=== PATIENT | female | born 2000 | race Caucasian/White ===

== ENCOUNTER 2020-07-11 16:08 | Emergency (ER) | payer OTHER, SELFPAY ==
[2020-07-11 16:15] VITALS: BP 127/59; PULSE 82; RESP 16; TEMP 36.8; O2SAT 100
--- NOTE | 2020-07-11 16:35 | ED.URI ---
HPI - URI/Sore Throat General Chief Complaint: Upper Respiratory Infection Stated Complaint: sore throat Time Seen by Provider: 07/11/20 16:28 Source: patient and RN notes reviewed Mode of arrival: ambulatory Limitations: no limitations History of Present Illness HPI Narrative: Patient presents today with a 3-day history of sore throat that is worse today. Denies fever, cough, congestion or rhinorrhea, or any other additional symptoms. No known sick exposures, to include COVID-19. Currently rates her pain 4/10 and has tried no [id number] treatment prior to arrival. MD elicited complaint: sore throat Related Data Home Medications Medication Instructions Recorded Confirmed norgestimate-ethinyl estradiol 1 tablet PO DAILY 07/11/20 07/11/20 [Estarylla] Allergies Allergy/AdvReac Type Severity Reaction Status Date / Time Sulfa (Sulfonamide Allergy Severe Hives Verified 07/11/20 16:20 Antibiotics) Review of Systems Review of Systems: Narrative: CONSTITUTIONAL: Denies body aches, fever, chills, or sweats. EYES: Denies visual changes, redness, or discharge. ENT: Denies rhinorrhea, congestion, or otalgia.+ Sore throat CARDIOVASCULAR: Denies chest pain, palpitations, or edema. RESPIRATORY: Denies cough or dyspnea. GASTROINTESTINAL: Denies abdominal pain, nausea, vomiting, or diarrhea. GENITOURINARY: Denies dysuria or hematuria. SKIN: Denies rash, itching, or wounds. MUSCULOSKELETAL: Denies back pain, joint pain, or myalgia. NEUROLOGIC: Denies headache, numbness, tingling, or weakness. PSYCH: Denies depression or anxiety. PMFSH Social History Social History Gender identity (if verbalized by the patient): Female Comments At time of signature, I have reviewed and agree with nursing past medical, surgical, social and family history unless otherwise noted. Please see nursing chart for further information. There is no relevant family history pertinent to the presenting complaint Exam Narrative: Exam Narrative: GENERAL: Well-appearing, well-nourished, and in no acute distress. HEAD: Normocephalic, atraumatic. EYES: EOMI. No redness or drainage. Conjunctivae normal. ENT: Mucous membranes pink and moist. Nares clear. No rhinorrhea. TMs normal bilaterally. Throat erythematous without edema or exudate. Uvula midline. NECK: Normal AROM. Supple. No lymphadenopathy. CHEST: No respiratory distress. Clear to auscultation. HEART: Regular rate and rhythm. No murmur appreciated. Normal peripheral pulses. ABDOMEN: Soft, nontender, nondistended, normal active bowel sounds. MUSCULOSKELETAL: No bony tenderness. EXTREMITIES: Normal range of motion. No edema. SKIN: Warm, dry, no rash. Capillary refill normal. Normal skin turgor. NEURO: No focal deficits. Alert and oriented x3. Gait steady. PSYCH: Normal affect. No signs of depression or anxiety. Course Course Emergency Course: Due to recent exposure and symptoms, patient may have a possible COVID-19 infection. Signs and symptoms discussed with patient. Patient educated to self-isolate in a room in his/her home away from others they live with. Use mask if available. Patient was advised not to leave house for any reason ? Self-treatment discussed including Tylenol for fever, pain, or myalgia, and cough cold medications for symptoms. Patient to check temperature daily and monitor for symptoms of respiratory distress. Patient should check in daily with primary care office/system via phone/virtual platform ? Nature of the disease to cause severe respiratory distress discussed with the patient. If emergent care is needed, instructed to notify EMS or primary care office/system that he/she may have COVID-19 to allow for proper preparation of PPE and isolation measures Vital Signs Vital signs: Vital Signs Temperature 98.3 F 07/11/20 16:15 Pulse Rate 82 07/11/20 16:15 Respiratory Rate 16 07/11/20
== END 2020-07-11 16:45 | disposition home or self-care (01) ==
PROVIDERS: Emergency Provider Nurse Practitioner
DX: J06.9 Acute upper respiratory infection, unspecified (principal); J02.9 Acute pharyngitis, unspecified; Z20.828 Contact with and (suspected) exposure to other viral communicable diseases
CPT/HCPCS: 87081; 87880; 99213; G0463

== ENCOUNTER 2020-08-07 16:11 | Emergency (ER) | payer OTHER, SELFPAY ==
[2020-08-07 16:13] VITALS: BP 140/85; PULSE 98; RESP 16; TEMP 36.3; O2SAT 98
[2020-08-07 16:44] LABS: Add Urine Microscopic? YES; Appearance Urine Clear (Clear); Bilirubin Urine Negative (Negative); Blood Urine 1+ (Negative); Color Urine Straw (Yellow); Glucose Urine UA Negative (Negative); Ketones Urine Negative (Negative); Leukocyte Esterase Ur Negative LEU/UL (Negative); Mucus Urine Rare /lpf; Nitrate Urine Negative (Negative); Protein Urine Negative (Negative); RBC Urine 0-2 /hpf (0-2); Specific Grav Ur 1.014 (1.001-1.035); Squamous Epithelial Cell Urine Many /hpf (Few); Urobilinogen Urine Negative mg/dL (<2.0); WBC Urine 0-3 /hpf
--- NOTE | 2020-08-07 18:03 | ED.FEMALEGU ---
HPI - Female Genitourinary General Chief complaint: Urogenital-Female Stated complaint: UTI Time Seen by Provider: 08/07/20 16:21 Source: patient Mode of arrival: ambulatory Limitations: no limitations History of Present Illness HPI Narrative: 19 years old white female presents with right lower back pain, she believes that she had similar symptoms when she had urinary tract infection. Patient also had a new sexual relationship started 2 months ago and worried about the possibility of STD. Patient denies any fever, chills, nausea, vomiting, urinary frequency or burning sensation. Patient reports possible slight vaginal discharge which could be normal Related Data Home Medications Medication Instructions Recorded Confirmed No Home Medications 08/07/20 08/07/20 Allergies Allergy/AdvReac Type Severity Reaction Status Date / Time Sulfa (Sulfonamide Allergy Severe Hives Verified 08/07/20 16:15 Antibiotics) Review of Systems Review of Systems: Narrative: CONSTITUTIONAL: Denies fever, chills, or sweats. EYES: Denies visual changes, redness, or discharge. ENT: Denies rhinorrhea, congestion, sore throat, or otalgia. CARDIOVASCULAR: Denies chest pain, palpitations, or edema. RESPIRATORY: Denies cough or dyspnea. GASTROINTESTINAL: Denies abdominal pain, nausea, vomiting, or diarrhea. GENITOURINARY: Denies dysuria or hematuria. SKIN: Denies rash or itching. MUSCULOSKELETAL: Denies back pain, joint pain, or myalgia. NEUROLOGIC: Denies headache, numbness, or weakness. PSYCHIATRIC: Denies anxiety or depression. PMFSH Social History Social History Gender identity (if verbalized by the patient): Female Exam Narrative: Exam Narrative: General appearance: Well-developed, well-nourished Skin: Normal color Head: Normocephalic, nontraumatic Eyes: Clear conjunctiva ENT: Oropharynx normal, ears normal, nose normal Neck: Supple, nontender Chest and respiratory: Airway patent, no respiratory distress, no accessory muscle use Heart: Regular rate/rhythm Abdomen: Soft, nontender, no organomegaly, quiet bowel sounds Vascular: Normal peripheral pulses, normal capillary refill. Musculoskeletal: Normal range of motion, nontender back Neurologic: Alert and oriented ?3, [employer] is normal as tested, no gross motor deficit : General: Yes no CVA tenderness External Female Exam: normal external appearance Speculum Exam - Vagina: normal appearance of the vagina and normal vaginal discharge Speculum Exam - Cervix: normal appearance of the cervix and Cervical os closed Course Course Emergency Course: Stable Vital Signs Vital signs: Vital Signs Temperature 36.3 C L 08/07/20 16:13 Pulse Rate 98 08/07/20 16:13 Respiratory Rate 16 08/07/20 16:13 Blood Pressure 140/85 08/07/20 16:13 Pulse Oximetry 98 08/07/20 16:13 Temperature 36.3 C L 08/07/20 16:13 Pulse Rate 98 08/07/20 16:13 Respiratory Rate 16 08/07/20 16:13 Blood Pressure 140/85 08/07/20 16:13 Pulse Oximetry 98 08/07/20 16:13 MDM - Female Genitourinary MDM Narrative Medical decision making narrative: Patient presents with possible urinary tract infection or STD or both. UA, pelvic exam ordered. Further plan to follow Differential Diagnosis Differential diagnosis: Likely urinary tract infection, cervicitis and vaginitis Lab Data Labs: Lab Results 08/07/20 Range/Units 16:34 Urine Color Straw (Yellow) Urine Appearance Clear (Clear) Urine pH 7.0 (5.0-9.0) Ur Specific [place] 1.014 (1.001-1.035) Urine Protein Negative (Negative) mg/dL Urine Glucose (UA) Negative (Negative) mg/dL Urine Ket
== END 2020-08-07 19:00 | disposition home or self-care (01) ==
PROVIDERS: Emergency Provider Emergency Medicine
DX: R30.0 Dysuria (principal)
CPT/HCPCS: 81001; 81025; 87070; 87491; 87591; 87808; 99284

== ENCOUNTER 2020-12-21 15:19 | Emergency (ER) | payer OTHER, SELFPAY ==
--- NOTE | 2020-12-21 15:27 | ED.SKABFB ---
HPI - Skin/Abscess/Foreign Bdy General Chief complaint: Skin/Abscess/Foreign Body Stated complaint: rash Time Seen by Provider: 12/21/20 15:26 Source: patient and RN notes reviewed Mode of arrival: ambulatory Limitations: no limitations History of Present Illness HPI narrative: 20-year-old female presents with concern for rash to her arms, hands. Reports she used a lotion at a nail salon that may have had a gradient she was allergic to. Reports the rash has been present for approximately 1 week and has not improved with Benadryl. She denies any swollen lips, swollen tongue, difficulty breathing, diarrhea, nausea, vomiting, fever. MD complaint: rash Related Data Home Medications Medication Instructions Recorded Confirmed No Home Medications 08/07/20 12/21/20 Allergies Allergy/AdvReac Type Severity Reaction Status Date / Time Sulfa (Sulfonamide Allergy Severe Hives Verified 08/07/20 16:15 Antibiotics) cocoa butter Allergy Rash Verified 12/21/20 15:33 Review of Systems Review of Systems: Narrative: CONSTITUTIONAL: Denies malaise, chills, sweats, or fever. ENT: Denies sore lips, swollen tongue, difficulty swallowing CARDIOVASCULAR: Denies chest pain, palpitations, or edema. RESPIRATORY: Denies cough or dyspnea. GASTROINTESTINAL: Denies abdominal pain, nausea, vomiting, diarrhea SKIN: Reports rash on hands, arms bilaterally MUSCULOSKELETAL: Denies myalgia. NEUROLOGIC: Denies headache. All systems reviewed & are unremarkable except as noted in HPI and below PMFSH Social History Social History Gender identity (if verbalized by the patient): Female Comments At time of signature, agree with nursing past medical, surgical, social and family history. There is no relevant family history pertinent to the presenting complaint Exam Narrative: Exam Narrative: GENERAL: Well-appearing, well-nourished, and in no acute distress. HEAD: Normocephalic, atraumatic. EYES: PERRLA, conjunctivae clear, and EOMI. ENT: Mucous membranes moist. Oropharynx without edema, erythema or lesions. NECK: Supple. No lymphadenopathy CHEST: Clear to auscultation. No respiratory distress. HEART: Regular rate and rhythm. SKIN: Warm, dry. Natalia papular rash noted to bilateral hands, elbows, forearms NEURO: Alert and oriented x3. PSYCH: Normal mood and affect Course Course Emergency Course: Patient is aware of diagnosis, understands and agrees to treatment plan. Anticipatory guidance given. Patient agrees to follow-up as directed and is aware of reasons to seek care at the emergency department. Portions of this record may have been created with voice recognition software Vital Signs Vital signs: Vital Signs Temperature 97.8 F 12/21/20 15:29 Pulse Rate 77 12/21/20 15:29 Respiratory Rate 16 12/21/20 15:29 Blood Pressure 124/66 12/21/20 15:29 Pulse Oximetry 100 12/21/20 15:29 Temperature 97.8 F 12/21/20 15:29 Pulse Rate 77 12/21/20 15:29 Respiratory Rate 16 12/21/20 15:29 Blood Pressure 124/66 12/21/20 15:29 Pulse Oximetry 100 12/21/20 15:29 Reviewed. MDM - Skin/Abscess/Foreign Bdy MDM Narrative Medical decision making narrative: Does not appear at this time to be erythema multiforme, bullous, SJS, TEN; no evidence at this time to suggest RMSF, endocarditis or Lyme disease; patient looks well, nontoxic and is tolerating oral intake; no neurologic signs or symptoms; no headache, photophobia or neck pain; afebrile; appropriate for initial outpatient treatment; discussed the importance of follow-up, patient agrees; question, viral exanthema, contact dermatitis, allergic dermatitis, eczema, urticaria, scabies. No soft palate or uvula edema, no tongue, lip edema or other mucosal involvement, no respiratory compromise, no stridor, no wheezing, no wheezing, no history of syncope, no hypotension, no nausea, vomiting, or diarrhea. Instructed patient to go to [facility]
[2020-12-21 15:29] VITALS: BP 124/66; PULSE 77; RESP 16; TEMP 36.6; O2SAT 100
== END 2020-12-21 15:39 | disposition home or self-care (01) ==
PROVIDERS: Emergency Provider Nurse Practitioner
DX: L23.9 Allergic contact dermatitis, unspecified cause (principal); Z87.891 Personal history of nicotine dependence
CPT/HCPCS: 99213; G0463

== ENCOUNTER 2021-06-03 15:02 | Emergency (ER) | payer OTHER, SELFPAY ==
--- NOTE | 2021-06-03 15:08 | ED.DENTAL ---
HPI - Dental/Oral General Chief complaint: Dental/Oral Stated complaint: tooth pain Time Seen by Provider: 06/03/21 15:51 Source: patient and RN notes reviewed Mode of arrival: ambulatory Limitations: no limitations History of Present Illness HPI Narrative: 20-year-old female presents concern for right upper dental pain. Reports she has a broken tooth that has been broken for quite some time, however it only recently started hurting her. Reports she has a dentist appointment in the beginning of June, however has had significant pain. She denies any facial swelling, difficulty swallowing, fever, body aches. Denies headaches. Reports the pain is radiating toward her ear. Denies intervention. MD Complaint: tooth pain Related Data Allergies Allergy/AdvReac Type Severity Reaction Status Date / Time Sulfa (Sulfonamide Allergy Severe Hives Verified 06/03/21 15:58 Antibiotics) cocoa butter Allergy Rash Verified 06/03/21 15:58 Review of Systems Review of Systems: CONSTITUTIONAL: Denies malaise, chills, sweats, or fever. EYES: Denies visual changes ENT: Denies rhinorrhea, congestion, sinus pain, otalgia or sore throat. Reports right upper dental pain, broken tooth CARDIOVASCULAR: Denies chest pain, palpitations, or edema. RESPIRATORY: Denies cough or dyspnea. GASTROINTESTINAL: Denies abdominal pain, nausea, vomiting SKIN: Denies redness or bruising MUSCULOSKELETAL: Denies myalgia. NEUROLOGIC: Denies headache. All systems reviewed & are unremarkable except as noted in HPI and below PMFSH Social History Social History Gender identity (if verbalized by the patient): Female Comments At time of signature, agree with nursing past medical, surgical, social and family history. There is no relevant family history pertinent to the presenting complaint Exam Narrative: GENERAL: Well-appearing, well-nourished, and in no acute distress. HEAD: Normocephalic, atraumatic. EYES: PERRLA, sclera clear, and EOMI. No nystagmus. ENT: Nares clear. Mucous membranes moist. TM pearly conrad with sharp light reflex bilaterally; no tragal tenderness. Oropharynx without edema, erythema or lesions. Tonsils not enlarged and without exudate. Broken teeth, caries NECK: Supple. No lymphadenopathy. CHEST: No respiratory distress. Speaks in full sentences. HEART: Regular rate and rhythm. SKIN: Warm, dry, no visible rash. NEURO: Alert and oriented x3. PSYCH: Normal mood and affect Course Course Emergency Course: Patient is aware of diagnosis, understands and agrees to treatment plan. Anticipatory guidance given. Patient agrees to follow-up as directed and is aware of reasons to seek care at the emergency department. Portions of this record may have been created with voice recognition software Vital Signs Vital signs: Reviewed. MDM - Dental/Oral MDM Narrative Medical decision making narrative: Patients pain and complaint coupled with physical findings are consistant with dentalgia. There are no focal signs of space occupying lesions that are compromising to the airway; no dysphagia, odynophagia, dysphonia, or dyspnea. No uvular deviation or soft palate edema. Patient is non-toxic appearing. The floor of the mouth is soft with no signs of Damon's Angina; no induration below mandible, no neck pain. Patient is without trismus or drooling and able to swallow secretions. Patient is felt appropriate for discharge home with dental follow up. Critical Care Time Critical Care Time Critical Care Time: No Discharge Plan Discharge Clinical Impression: Toothache Patient Disposition: Home, Self-Care Condition: Stable Instructions: Antibiotic Form, Toothache (ED) Additional Instructions: Take antibiotic as directed Avoid temperature extremes May apply heat or ice to the face Gentle brushing and flossing Alternate Tylenol and ibuprofen as needed for pain Follow-up with the dentist as julia
[2021-06-03 15:15] VITALS: BP 114/75; PULSE 74; RESP 16; TEMP 36.7; O2SAT 100
== END 2021-06-03 16:05 | disposition home or self-care (01) ==
PROVIDERS: Emergency Provider Nurse Practitioner
DX: K08.89 Other specified disorders of teeth and supporting structures (principal); Z87.891 Personal history of nicotine dependence
CPT/HCPCS: 99213; G0463

== ENCOUNTER 2022-06-20 15:29 | Emergency (ER) | payer OTHER, SELFPAY ==
[2022-06-20 15:38] VITALS: BP 125/83; PULSE 73; RESP 16; TEMP 36.6; O2SAT 99
--- NOTE | 2022-06-20 16:12 | ED.SKABFB ---
HPI - Skin/Abscess/Foreign Bdy General Chief complaint: Skin/Abscess/Foreign Body Stated complaint: Rash Time Seen by Provider: 06/20/22 16:12 Source: patient Mode of arrival: ambulatory Limitations: no limitations History of Present Illness HPI narrative: 21 y/o female presented for c/o red circular rash lesions to upper back right leg and right chest appearing for 2 weeks. Denies itching. Denies known contacts with similar symptoms. Has not applied anything to sites. Related Data Allergies Allergy/AdvReac Type Severity Reaction Status Date / Time Sulfa (Sulfonamide Allergy Severe Hives Verified 06/20/22 15:47 Antibiotics) cocoa butter Allergy Intermediate Rash Verified 06/20/22 15:47 Review of Systems Review of Systems: CONSTITUTIONAL: Denies body aches, fever, chills, or sweats. EYES: Denies visual changes, redness, or discharge. CARDIOVASCULAR: Denies chest pain, palpitations, or edema. RESPIRATORY: Denies cough or dyspnea. GASTROINTESTINAL: Denies abdominal pain, nausea, vomiting, or diarrhea. SKIN: see hpi MUSCULOSKELETAL: Denies back pain, joint pain, or myalgia. NEUROLOGIC: Denies headache, numbness, tingling, or weakness. [facility] Past Medical History Medical History Surveillance for Depo-Provera contraception Social History Social History Gender identity (if verbalized by the patient): Female Comments At time of signature, I have reviewed and agree with nursing past medical, surgical, social and family history unless otherwise noted. Please see nursing chart for further information. There is no relevant family history pertinent to the presenting complaint Exam Narrative: GENERAL: Well-appearing ENT: Mucous membranes moist. Oropharynx without edema, erythema or lesions. NECK: Supple. No lymphadenopathy CHEST: Clear to auscultation. HEART: Regular rate and rhythm. SKIN: Warm, dry. Scattered erythematous circular scaly lesions to upper back from 0.5cm-1cm diameter, right lateral thigh approx 3cm diameter , right upper chest approx 1.5cm diameter, c/w tinea corporis. No induration or fluctuance to sites. NEURO: Alert and oriented x3. Course Course Emergency Course: Patient is aware of diagnosis, understands and agrees to treatment plan. Anticipatory guidance given. Patient agrees to follow-up as directed and is aware of reasons to seek care at the emergency department. Portions of this record may have been created with voice recognition software Level of Care: Express Care Visit Vital Signs Vital signs: Vital Signs Temperature 97.8 F 06/20/22 15:38 Pulse Rate 73 06/20/22 15:38 Respiratory Rate 16 06/20/22 15:38 Blood Pressure 125/83 06/20/22 15:38 Pulse Oximetry 99 06/20/22 15:38 Oxygen Delivery Room Air 06/20/22 15:38 Temperature 97.8 F 06/20/22 15:38 Pulse Rate 73 06/20/22 15:38 Respiratory Rate 16 06/20/22 15:38 Blood Pressure 125/83 06/20/22 15:38 Pulse Oximetry 99 06/20/22 15:38 Oxygen Delivery Room Air 06/20/22 15:38 Reviewed MDM - Skin/Abscess/Foreign Bdy MDM Narrative Medical decision making narrative: Advised supportive measures and signs/symptoms to go to the ER. Pt is appropriate for outpt treatment and f/u. Instructed patient to go to nearest ER immediately for any worsening symptoms including but not limited to: fever, spreading rash, pain, sore throat, headache, dizziness, chest pain, trouble breathing, or any symptoms concerning to the patient. Differential Diagnosis Differential diagnosis: Likely abscess of skin or subcutaneous tissue, urticaria, herpes zoster, cellulitis and contact dermatitis Discharge Plan Discharge Clinical Impression: Dermatophytosis Patient Disposition: Home, Self-Care Condition: Stable Instructions: Tinea Corporis (ED) Additional Instructions: Keep skin clean and dry T
== END 2022-06-20 16:25 | disposition home or self-care (01) ==
PROVIDERS: Emergency Provider Nurse Practitioner Family
DX: B35.4 Tinea corporis (principal); Z87.891 Personal history of nicotine dependence
CPT/HCPCS: 99213; G0463

== ENCOUNTER 2022-07-02 10:47 | Emergency (ER) | payer OTHER, SELFPAY ==
[2022-07-02 10:55] VITALS: BP 128/79; PULSE 100; RESP 14; TEMP 37.2; O2SAT 100
--- NOTE | 2022-07-02 11:06 | ED.GENADULT ---
HPI - General Adult General Chief complaint: Upper Respiratory Infection Stated complaint: Sore Throat, Rash on Body Time Seen by Provider: 07/02/22 11:06 Source: patient, RN notes reviewed and old records reviewed Mode of arrival: ambulatory Limitations: no limitations History of Present Illness HPI narrative: 21-year-old female presents to the [facility] with sore throat and rash on body Sore throat and fever started last night. Rash has been going on was evaluated on the 20 of June. Related Data Allergies Allergy/AdvReac Type Severity Reaction Status Date / Time Sulfa (Sulfonamide Allergy Severe Hives Verified 07/02/22 11:08 Antibiotics) cocoa butter Allergy Intermediate Rash Verified 07/02/22 11:08 Review of Systems Review of Systems: All systems reviewed & are unremarkable except as noted in HPI and below Constitutional: Constitutional: Reports no additional constitutional complaints, Denies chills and Denies fever(s) Eyes: Eyes: Reports no additional eye complaints ENT: Reports as per HPI Cardiovascular: Cardiovascular: Reports no additional cardiovascular complaints Respiratory: Respiratory: Reports no additional respiratory complaints Gastrointestinal: Gastrointestinal: Reports no additional gastrointestinal complaints Musculoskeletal: Musculoskeletal: Reports no additional musculoskeletal complaints Integumentary/Breasts: Skin/Breast: Reports as per HPI and Reports rash Neurologic: Reports system reviewed and no additional complaints, except as documented Psychiatric: Psychiatric: Reports no additional psychiatric complaints Allergic/Immunologic: Allergic/Immunologic: Reports no additional allergic/immunologic complaints [facility] Past Medical History Medical History Surveillance for Depo-Provera contraception Social History Social History Gender identity (if verbalized by the patient): Female Comments At the time of my signature, I reviewed and agree with the nursing past medical, surgical, social, and family history. There is no relevant family history pertinent to the patient complaint. Exam Const: General: healthy appearing, comfortable, no acute distress, well developed, alert and well nourished Nutritional Appearance: well nourished Orientation/consciousness: patient oriented x3 Limitations: no limitations HENMT: Head: normal to inspection Ears: external ears normal, TM's normal bilaterally and EAC's normal Face/Nose/Sinus: Normal external nose present and Normal nares present Mouth: Yes Normal oral and palatal mucosa present, Yes lip normal and Yes moist mucous membranes Throat: posterior oropharynx normal, uvula midline and abnormal tonsil bilateral erythema, exudates and hypertrophy 3+ Eyes: General: appearance normal, both eyes and all related structures Pupils: Equal, round and reactive pupils present Neck: Neck: normal visual inspection, full ROM, no lymphadenopathy and no meningeal signs Chest: Chest palpation & inspection: normal inspection of the chest Resp: Effort & Inspection: normal respiratory effort and no use of accessory muscles Auscultation: clear to auscultation bilaterally, no crackles, no rales, no rhonchi and no wheezes Cardio: Rate: regular rate Rhythm: regular rhythm GI: GI Palp: Yes Soft to palpation and No Tenderness to palpation present (GI) Back/Spine/Pelvis: Cervical Spine: cervical ROM normal and No Cervical spine tenderness Thoracic/Lumbar Spine: thoracic and lumbar spine normal to inspection and thoraco-lumbar ROM normal Skin: General skin exam: normal color Wounds: no wounds Other: Multiple circular lesions, raised edges of the chest, back, hips. Flaky, dry in appearance without signs of cellulitis. No fluctuance. Neuro: General: patient oriented x3, moves all extremities, no meningeal signs and no focal motor deficits Cranial ne
== END 2022-07-02 11:21 | disposition home or self-care (01) ==
PROVIDERS: Emergency Provider Nurse Practitioner
DX: J03.90 Acute tonsillitis, unspecified (principal); B35.4 Tinea corporis; Z87.891 Personal history of nicotine dependence
CPT/HCPCS: 87081; 87804; 87880; 99213; G0463

== ENCOUNTER 2022-09-11 11:17 | Emergency (ER) | payer OTHER, SELFPAY ==
--- NOTE | 2022-09-11 11:18 | ED.URI ---
HPI - URI/Sore Throat General Chief Complaint: Upper Respiratory Infection Stated Complaint: sore throat Time Seen by Provider: 09/11/22 11:18 Source: patient Mode of arrival: ambulatory Limitations: no limitations History of Present Illness HPI Narrative: Ms. Webb is a 22-year-old female patient presenting to the clinic today with complaints of a sore throat and runny nose. She reports runny nose has been going on for approximately 1 week but started having sore throat today. She reports that she gets for strep throat frequently. She denies any fever or chills. She denies any known exposure to anybody with COVID, flu, or strep. MD elicited complaint: sore throat and nasal congestion Related Data Allergies Allergy/AdvReac Type Severity Reaction Status Date / Time Sulfa (Sulfonamide Allergy Severe Hives Verified 09/11/22 11:24 Antibiotics) cocoa butter Allergy Intermediate Rash Verified 09/11/22 11:24 Review of Systems Review of Systems: Pertinent positives per HPI. Patient denies any fever, chills, rash, headache, visual changes, dizziness, cough, shortness of breath, chest pain, palpitations, nausea, vomiting, diarrhea, constipation, abdominal pain, or any urinary issues. [facility] Past Medical History Medical History Surveillance for Depo-Provera contraception Social History Social History Gender identity (if verbalized by the patient): Female Comments At the time of my signature, I reviewed and agree with the nursing past medical, surgical, social, and family history. There is no relevant family history pertinent to the patient complaint. Exam Narrative: General: Well-developed, well nourished, in no apparent distress Head: Normocephalic, atraumatic Eyes: Pupils equally round and reactive to light bilaterally, EOM intact, sclera and conjunctive clear, no discharge, lids normal Ears: TMs intact and clear, ear canals clear, no drainage, grossly hearing normal. Nose: Nares patent, no discharge, no inflammation, no sinus tenderness. Mouth: Oral pharynx without lesions or masses, good dentition, MMM. Oropharynx red with bilateral tonsillar swelling Neck: Supple, trachea midline, no enlargement of anterior or posterior cervical nodes, no thyroid masses or goiter palpable. Cardio: Regular rate and rhythm, s1 and s2 normal, no murmur appreciated. Resp: Clear to auscultation bilaterally, no rhonchi, rales, wheezing or rubs Course Course Emergency Course: Portions of this record may have been created with voice recognition software. Level of Care: Express Care Visit Vital Signs Vital signs: Vital signs reviewed MDM - URI/Sore Throat MDM Narrative Medical decision making narrative: At the time of visit patient is resting comfortably on the exam table. Strep screen was positive in the clinic today. I suspect patient has URI/strep pharyngitis. Prescription for prednisone and amoxicillin was sent to the pharmacy and supportive measures were discussed with the patient she voiced understanding of discharge instructions and agrees to treatment plan. Differential Diagnosis Differential diagnosis: Likely upper respiratory infection, otitis media, sinusitis, viral infection, bronchitis, influenza, pharyngitis and other (COVID) Discharge Plan Discharge Clinical Impression: Acute streptococcal pharyngitis Upper respiratory infection Qualifiers: URI type: unspecified URI Qualified Code(s): J06.9 - Acute upper respiratory infection, unspecified Patient Disposition: Home, Self-Care Condition: Stable Instructions: Antibiotic Form, Strep Throat (ED), Upper Respiratory Infection (ED) Additional Instructions: Take prescription medications only as prescribed-amoxicillin Change her toothbrush in 24 hours after initiation antibiotic Increase fluids and stay well hydrated Tylenol
[2022-09-11 11:25] VITALS: BP 120/79; PULSE 78; RESP 16; TEMP 36.6; O2SAT 99
== END 2022-09-11 11:46 | disposition home or self-care (01) ==
PROVIDERS: Emergency Provider Nurse Practitioner Family
DX: J02.0 Streptococcal pharyngitis (principal); Z87.891 Personal history of nicotine dependence
CPT/HCPCS: 87880; 99213; G0463

== ENCOUNTER 2022-10-03 11:21 | Emergency (ER) | payer OTHER, SELFPAY ==
[2022-10-03 11:34] VITALS: BP 126/66; PULSE 79; RESP 16; TEMP 36.8; O2SAT 100
--- NOTE | 2022-10-03 11:51 | ED.URI ---
HPI - URI/Sore Throat General Chief Complaint: Upper Respiratory Infection Stated Complaint: uri Time Seen by Provider: 10/03/22 11:51 Source: patient and RN notes reviewed Mode of arrival: ambulatory Limitations: no limitations History of Present Illness HPI Narrative: 22-year-old female presented for complaint of cough, nasal congestion, sore throat, and fever for about 3 days. She endorses temperature up to 101, with associated body aches. Also has been coughing and gagging on mucus. She denies known sick contacts but did attend radiograph. She denies shortness of breath, wheezing, nausea, vomiting. Not taking anything for symptoms. Patient vapes. MD elicited complaint: cough Related Data Allergies Allergy/AdvReac Type Severity Reaction Status Date / Time Sulfa (Sulfonamide Allergy Severe Hives Verified 10/03/22 11:36 Antibiotics) cocoa butter Allergy Intermediate Rash Verified 10/03/22 11:36 Review of Systems Review of Systems: ROS per HPI [facility] Past Medical History Medical History Surveillance for Depo-Provera contraception Social History Social History Gender identity (if verbalized by the patient): Female Exam Narrative: GENERAL: Ill-appearing, nontoxic EYES: PERRLA, conjunctivae clear ENT: Mucous membranes moist. nasal congestion. TM pearly conard with dull light reflex bilaterally; no tragal tenderness. Oropharynx erythematous Tonsils enlarged 2+ without lesions or exudate, no drooling, no hoarseness, no trismus, uvula midline. No tripod positioning, muffled voice, soft palate or pharyngeal wall bulging NECK: Supple. No lymphadenopathy CHEST: Clear to auscultation, breath sounds equal. frequent moist cough. No wheezing, rhonchi, rales, or stridor. No respiratory distress, speaks in full sentences. HEART: Regular rate and rhythm. No murmur heard. SKIN: Warm, dry, no rash. NEURO: Alert and oriented x3. PSYCH: Normal mood and affect Course Course Emergency Course: Patient is aware of diagnosis, understands and agrees to treatment plan. Anticipatory guidance given. Patient agrees to follow-up as directed and is aware of reasons to seek care at the emergency department. Portions of this record may have been created with voice recognition software Level of Care: Express Care Visit Vital Signs Vital signs: Vital Signs Temperature 98.3 F 10/03/22 11:34 Pulse Rate 79 10/03/22 11:34 Respiratory Rate 16 10/03/22 11:34 Blood Pressure 126/66 10/03/22 11:34 Pulse Oximetry 100 10/03/22 11:34 Oxygen Delivery Room Air 10/03/22 11:34 Temperature 98.3 F 10/03/22 11:34 Pulse Rate 79 10/03/22 11:34 Respiratory Rate 16 10/03/22 11:34 Blood Pressure 126/66 10/03/22 11:34 Pulse Oximetry 100 10/03/22 11:34 Oxygen Delivery Room Air 10/03/22 11:34 reviewed MDM - URI/Sore Throat MDM Narrative Medical decision making narrative: Results of test reviewed with patient. Advised supportive measures and signs/symptoms to go to the ER. Pt is appropriate for outpt treatment and f/u. Differential Diagnosis Differential diagnosis: Likely upper respiratory infection, sinusitis, viral infection, bronchitis and influenza Lab Data Labs: Lab Results 10/03/22 Range/Units 11:47 POC SARS CoV-2 Ag Negative (Negative) Influenza A Screen Negative Reference Range: Negative Influenza B Screen Negative Reference Range: Negative Strep Screen Presumptive Negative *(Reference Range: Negative)* Discharge Plan Discharge Clinical Impression: Upper respiratory infection Patient Disposition: Home, Self-Care Condition: Stable Instructions: Upper Respiratory Infection (E
== END 2022-10-03 12:26 | disposition home or self-care (01) ==
PROVIDERS: Emergency Provider Nurse Practitioner Family
DX: J06.9 Acute upper respiratory infection, unspecified (principal); Z20.822 Contact with and (suspected) exposure to COVID-19
CPT/HCPCS: 87081; 87426; 87804; 87880; 99213; C9803; G0463

== ENCOUNTER 2024-11-02 11:55 | Emergency (ER) | payer SELFPAY ==
[2024-11-02 12:08] VITALS: BP 127/77; PULSE 67; RESP 20; TEMP 36.7; O2SAT 100
[2024-11-02 12:41] LABS: EDSTREPNEGPOS1 Negative (Negative)
[2024-11-02 12:46] VITALS: PULSE 67; RESP 20; O2SAT 100
--- NOTE | 2024-11-02 12:47 | ED.URI ---
HPI - URI/Sore Throat General Chief Complaint: Upper Respiratory Infection Stated Complaint: irritation in throat Time Seen by Provider: 11/02/24 12:40 Source: patient and RN notes reviewed Mode of arrival: ambulatory Limitations: no limitations History of Present Illness HPI Narrative: Patient presents today complaining of pain and irritation to the throat x2 weeks. Believes this may be due to some black mold she found in her house. Denies any other symptoms except occasional cough that she is attributing to her sore throat. Denies fever, congestion, rhinorrhea, shortness of breath, difficulty swallowing. She has occasionally taking Tylenol with mild relief. Related Data Allergies Allergy/AdvReac Type Severity Reaction Status Date / Time Sulfa (Sulfonamide Allergy Severe Hives Verified 11/02/24 12:03 Antibiotics) cocoa butter Allergy Intermediate Rash Verified 11/02/24 12:03 Review of Systems Review of Systems: CONSTITUTIONAL: Denies body aches, fever, chills, or sweats. EYES: Denies visual changes, redness, or discharge. ENT: Denies rhinorrhea, congestion, or otalgia.+ sore throat CARDIOVASCULAR: Denies chest pain, palpitations, or edema. RESPIRATORY: Denies dyspnea.+ cough GASTROINTESTINAL: Denies abdominal pain, nausea, vomiting, or diarrhea. GENITOURINARY: Denies dysuria or hematuria. SKIN: Denies rash, itching, or wounds. MUSCULOSKELETAL: Denies back pain, joint pain, or myalgia. NEUROLOGIC: Denies headache, numbness, tingling, or weakness. PSYCH: Denies depression or anxiety. [facility] Past Medical History Medical History Surveillance for Depo-Provera contraception Social History Social History Gender identity (if verbalized by the patient): Female Comments At time of signature, I have reviewed and agree with nursing past medical, surgical, social and family history unless otherwise noted. Please see nursing chart for further information. There is no relevant family history pertinent to the presenting complaint Exam Narrative: GENERAL: Well-appearing, well-nourished, and in no acute distress. HEAD: Normocephalic, atraumatic. EYES: EOMI. No redness or drainage. Conjunctivae normal. ENT: Mucous membranes pink and moist. Nares clear. No rhinorrhea. TMs normal bilaterally. Throat erythematous without edema or exudate. Uvula midline. NECK: Normal AROM. Supple. No lymphadenopathy. CHEST: No respiratory distress. Clear to auscultation. HEART: Regular rate and rhythm. No murmur appreciated. EXTREMITIES: Normal range of motion. No edema. SKIN: Warm, dry, no rash. Capillary refill normal. Normal skin turgor. NEURO: No focal deficits. Alert and oriented x3. Gait steady. PSYCH: Normal affect. No signs of depression or anxiety. Course Course Level of Care: Express Care Visit Vital Signs Vital signs: Vital Signs Temperature 98.1 F 11/02/24 12:08 Pulse Rate 67 11/02/24 12:08 Respiratory Rate 20 11/02/24 12:08 Blood Pressure 127/77 11/02/24 12:08 Pulse Oximetry 100 11/02/24 12:08 Oxygen Delivery Room Air 11/02/24 12:08 Temperature 98.1 F 11/02/24 12:08 Pulse Rate 67 11/02/24 12:46 Respiratory Rate 20 11/02/24 12:46 Blood Pressure 127/77 11/02/24 12:08 Pulse Oximetry 100 11/02/24 12:46 Oxygen Delivery Room Air 11/02/24 12:08 Review MDM - URI/Sore Throat MDM Narrative Medical decision making narrative: Rapid strep negative. Culture pending. Patient will be started on a short course of prednisone to see if this will help with her discomfort and irritation. She has also been instructed to start an allergy medications such as Zyrtec, Claritin, or Lilli. Patient agrees with plan. Anticipatory guidance given. Differential Diagnosis Differential diagnosis: Likely upper respiratory infection, otitis media, viral infection, pharyngitis and other (Strep throat) Lab Data Attestation: I reviewed the patient's lab results. Labs: Lab Results 11/02/24 Range/Units 12:38 POC Grp A Strep Screen Negative (Negative) Critical Care Time Critical Care Time Critical Care Time: No Discharge Plan Discharge Clinical Impression: Pharyngitis Qualifiers: Pharyngitis/tonsillitis etiology: unspecified etiology Qualified Code(s): J02.9 - Acute pharyngitis, unspecified Patient Disposition: Home, Self-Care Condition: Stable Instructions: Pharyngitis (ED) Additional Instructions: Your rapid strep swab was negative today at [facility]. You will be notified in a few days if the culture comes back positive for strep, and appropriate antibiotics will be called in for you at that time. Take Tylenol or ibuprofen for fever or pain. Take the prednisone as prescribed. Start an allergy medications such as Zyrtec, Claritin, or Lilli. Rest and stay hydrated. Follow up with your PCP in 7 days if symptoms are not improving. Go to the ER immediately if you have any difficulty breathing or swallowing. Your blood pressure was elevated above 120/80 today at Urgent Care. This puts you above the threshold for follow up. Please schedule a followup visit with your personal physician as soon as possible, for further evaluation and treatment. Even blood pressure exceeding 120/80 may indicate pre-hypertension. Patient Language: Maori Prescriptions: New prednisone 20 mg tablet 40 mg PO DAILY 5 Days Qty: 10 0RF Follow-up/Referrals: UNKNOWN,DOCTOR [Primary Care Provider] - Stand Alone Forms: Work/School Release IP Time of Disposition: 12:50
== END 2024-11-02 12:55 | disposition home or self-care (01) ==
PROVIDERS: Emergency Provider Nurse Practitioner
DX: J02.9 Acute pharyngitis, unspecified (principal)
CPT/HCPCS: 87081; 87880; 99213; G0463

== ENCOUNTER 2025-02-15 03:16 | Emergency (ER) | payer SELFPAY ==
[2025-02-15] VITALS (35 sets, daily range): BP systolic 92–132; BP diastolic 53–88; PULSE 51–88; RESP 12–20; TEMP 36.3–36.6; O2SAT 99–100
--- NOTE | ~2025-02-15 | US_ITS ---
Abdomen: 2 supine views of the chest and abdomen demonstrates normal bowel gas pattern. No evidence o f obstruction or free air. No abnormal masses. Imaged bony structures are unremarkable. No radiopaque foreign body seen. Both lungs are clear. No pleural effusion pneumothorax. The cardiomediastinal silhouette is unremarka ble. Impression: No radiopaque foreign body seen. Reviewed, dictated and finalized at location A. Impression: No radiopaque foreign body seen.
[2025-02-15 03:38] LABS: BEDSIDEPREGUCG Positive (Negative)
[2025-02-15] MEDS: Please enter patient height and weight for medication dosing 1 EACH XX (03:40)
[2025-02-15 03:42] LABS: Hematocrit 39.5 % (37.0-47.0); Hemoglobin 13.4 g/dL (12.0-15.0); Immature Granulocyte Percent A 0.3 % (0-0.5); Lymphocytes Absolute Auto 3.29 K/mm3 (0.9-3.2); Mean Corpuscular HGB Conc 33.9 g/dl (32-36); Mean Corpuscular Hemoglobin 31.2 pg (26-34); Mean Corpuscular Volume 92.1 fl (80-100); Nucleated Red Blood Cells Absolute Auto 0.000 K/mm3 (0.0-0.012); Nucleated Red Blood Cells Perc 0.0 % (0.0-0.2); Platelet Count Result 317 k/mm3 (150-375); Red Blood Count 4.29 M/mm3 (4.2-5.4); White Blood Count 7.0 K/mm3 (4.5-10.0)
--- NOTE | 2025-02-15 03:45 | ED.FEMALEGU ---
HPI - Female Genitourinary General Chief complaint: NURSE EXTERN <Lori Miller MD - Last Filed: 02/15/25 06:24> Stated complaint: vaginal bleeding <Lori Miller MD - Last Filed: 02/15/25 06:24> Time Seen by Provider: 02/15/25 03:23 <Lori Miller MD - Last Filed: 02/15/25 06:24> History of Present Illness HPI Narrative: About 1 hour ago, patient started having heavy vaginal bleeding she has soaked 2 pads in 1 hour. She had what seems like a period two days ago that was very light. She had a chemical 1 month ago and was supposed to follow-up but has not followed up yet with ultrasound. She is reporting lower abdominal pain and leg cramps. <Lori Miller MD - Last Filed: 02/15/25 06:24> Related Data Allergies/Adverse reactions: Allergies Allergy/AdvReac Type Severity Reaction Status Date / Time Sulfa (Sulfonamide Allergy Severe Hives Verified 11/02/24 12:03 Antibiotics) cocoa butter Allergy Intermediate Rash Verified 11/02/24 12:03 <Lori Miller MD - Last Filed: 02/15/25 06:24> Review of Systems Review of Systems: All systems reviewed & are unremarkable except as noted in HPI and below <Lori Miller MD - Last Filed: 02/15/25 06:24> PMFSH Past Medical History Medical History: Medical History Surveillance for Depo-Provera contraception <Lori Miller MD - Last Filed: 02/15/25 06:24> Social History Social History: Social History Gender identity (if verbalized by the patient): Female <Lori Miller MD - Last Filed: 02/15/25 06:24> Exam Narrative: EXAMINATION OF ORGAN SYSTEMS/BODY AREAS: Constitutional: Vital signs per nursing GENERAL:[No acute distress, non-toxic appearing.] HEAD: Normal with no signs of head trauma. EYES: EOMI, conjunctiva normal ENT: Hearing grossly intact LUNGS: Nonlabored breathing. HEART: [Regular rate and rhythm] ABD: [Soft], [nontender to palpation] : Light vaginal bleeding, no significant tenderness, no purulent discharge or adnexal or cervical motion tenderness EXT: Normal range of motion SKIN: [No rashes or lesions.] NEURO: [Alert and oriented x 3. No gross focal sensory or strength deficits.] PSYCH: Normal affect <Lori Miller MD - Last Filed: 02/15/25 06:24> Course Course Emergency Course: 24 old female presents to the emergency department for evaluation for vaginal bleeding secondary to a chemical . Ultrasound showed large fluid collection in left adnexa. Left ovary not visualized. Small amount of fluid in the endometrium. On re-evaluation patient states she feels improved. Patient does have follow-up scheduled with her OB Gyne <Manuel Davis MD - Last Filed: 02/15/25 17:50> Vital Signs Vital signs: Vital Signs Blood Pressure 132/88 02/15/25 03:33 Pulse Oximetry 100 02/15/25 03:33 Temperature 97.3 F L 02/15/25 09:30 Pulse Rate 66 02/15/25 09:30 Respiratory Rate 16 02/15/25 09:30 Blood Pressure 109/87 02/15/25 09:30 Pulse Oximetry 100 02/15/25 09:30 <Lori Miller MD - Last Filed: 02/15/25 06:24> Vital Signs Blood Pressure 132/88 02/15/25 03:33 Pulse Oximetry 100 02/15/25 03:33 Temperature 97.3 F L 02/15/25 09:30 Pulse Rate 66 02/15/25 09:30 Respiratory Rate 16 02/15/25 09:30 Blood Pressure 109/87 02/15/25 09:30 Pulse Oximetry 100 02/15/25 09:30 <Manuel Davis MD - Last Filed: 02/15/25 17:50> MDM - Female Genitourinary MDM Narrative Medical decision making narrative: Patient presents here with heavy vaginal bleeding for the past hour; she had a chemical 6 weeks ago, has not had an ultrasound follow-up yet, 2 days ago had some bleeding that was very light. She has not had any further sexual activity in the last 2 months, since she had 1st gotten and arranged an . Abdomen soft without significant tenderness, and on exam she does have active bleeding without severe appearing hemorrhage. No significant adnexal or cervical motion tenderness. No purulence. Her hCG is 19. As she has not had any further sexual activity she had the , I have very low concern for new , I do suspect potential declining number from prior versus retained products/failed (?), very low concern for ectopic given how well the patient appears, with soft abdomen and no tenderness and normal vital signs. I do feel ultrasound would be beneficial. Patient would prefer to stay until morning for ultrasound rather than follow-up outpatient. I am comfortable with this plan since her vital signs are normal and her hemoglobin is stable and I have again very low concern for ectopic. I did re-evaluate her several times and she is resting comfortably in no distress. Normal vital signs still. Signed out to oncoming ER physician. <Lori Miller MD - Last Filed: 02/15/25 06:24> Lab Data Result diagrams: 02/15/25 03:35 02/15/25 03:35 <Lori Miller MD - Last Filed: 02/15/25 06:24> Labs: Lab Results 02/15/25 02/15/25 02/15/25 Range/Units 03:30 03:35 03:35 WBC 7.0 (4.5-10.0) K/mm3 RBC 4.29 (4.2-5.4) M/mm3 Hgb 13.4 (12.0-15.0) g/dL Hct 39.5 (37.0-47.0) % MCV 92.1 (80-100) fl MCH 31.2 (26-34) pg MCHC 33.9 (32-36) g/dl RDW 11.9 (11.5-14.5) % Plt Count 317 (150-375) k/mm3 MPV 10.2 (7.4-10.4) fl Immature Gran % (Auto) 0.3 (0-0.5) % Neut % (Auto) 40.8 L (45.5-73.1) % Lymph % (Auto) 47.3 H (18.3-44.2) % [place] % (Auto) 9.6 H (2.6-8.5) % Eos % (Auto) 1.6 (0-4.4) % Baso % (Auto) 0.4 (0.2-1.2) % Lymph # (Auto) 3.29 H (0.9-3.2) K/mm3 [place] # (Auto) 0.7 H (0.1-0.6) K/mm3 Eos # (Auto) 0.1 (0-0.3) K/mm3 Baso # (Auto) 0.0 (0.0-0.1) K/mm3 Abs Immat Gran (auto) 0.02 (0.00-0.031) K/mm3 Absolute Neuts (auto) 2.8 (1.3-6.7) K/mm3 Absolute Nucleated RBC 0.000 (0.0-0.012) K/mm3 Nucleated RBC % 0.0 (0.0-0.2) % Sodium Cancelled 138 Potassium Cancelled Chloride Carbon Dioxide Anion Gap BUN Creatinine Estim Creat Clear Calc Estimated GFR Glucose Calcium Beta HCG, Quant mIU/ML POC Urine HCG, Qual Positive (Negative) Blood Type Antibody Screen 02/15/25 02/15/25 02/15/25 Range/Units 03:35 03:35 03:35 WBC (4.5-10.0) K/mm3 RBC (4.2-5.4) M/mm3 Hgb (12.0-15.0) g/dL Hct (37.0-47.0) % MCV (80-100) fl MCH (26-34) pg MCHC (32-36) g/dl RDW (11.5-14.5) % Plt Count (150-375) k/mm3 MPV (7.4-10.4) fl Immature Gran % (Auto) (0-0.5) % Neut % (Auto) (45.5-73.1) % Lymph % (Auto) (18.3-44.2) % [place] % (Auto) (2.6-8.5) % Eos % (Auto) (0-4.4) % Baso % (Auto) (0.2-1.2) % Lymph # (Auto) (0.9-3.2) K/mm3 [place] # (Auto) (0.1-0.6) K/mm3 Eos # (Auto) (0-0.3) K/mm3 Baso # (Auto) (0.0-0.1) K/mm3 Abs Immat Gran (auto) (0.00-0.031) K/mm3 Absolute Neuts (auto) (1.3-6.7) K/mm3 Absolute Nucleated RBC (0.0-0.012) K/mm3 Nucleated RBC % (0.0-0.2) % Sodium Potassium 3.8 Chloride Cancelled 103 Carbon Dioxide Cancelled 23 Anion Gap Cancelled BUN Creatinine Estim Creat Clear Calc Estimated GFR Glucose Calcium Beta HCG, Quant mIU/ML POC Urine HCG, Qual (Negative) Blood Type Antibody Screen 02/15/25 02/15/25 02/15/25 Range/Units 03:35 03:35 03:35 WBC (4.5-10.0) K/mm3 RBC (4.2-5.4) M/mm3 Hgb (12.0-15.0) g/dL Hct (37.0-47.0) % MCV (80-100) fl MCH (26-34) pg MCHC (32-36) g/dl RDW (11.5-14.5) % Plt Count (150-375) k/mm3 MPV (7.4-10.4) fl Immature Gran % (Auto) (0-0.5) % Neut % (Auto) (45.5-73.1) % Lymph % (Auto) (18.3-44.2) % [place] % (Auto) (2.6-8.5) % Eos % (Auto) (0-4.4) % Baso % (Auto) (0.2-1.2) % Lymph # (Auto) (0.9-3.2) K/mm3 [place] # (Auto) (0.1-0.6) K/mm3 Eos # (Auto) (0-0.3) K/mm3 Baso # (Auto) (0.0-0.1) K/mm3 Abs Immat Gran (auto) (0.00-0.031) K/mm3 Absolute Neuts (auto) (1.3-6.7) K/mm3 Absolute Nucleated RBC (0.0-0.012) K/mm3 Nucleated RBC % (0.0-0.2) % Sodium Potassium Chloride Carbon Dioxide Anion Gap 12 BUN Cancelled 12 Creatinine Cancelled 0.89 Estim Creat Clear Calc Cancelled Estimated GFR Glucose Calcium Beta HCG, Quant mIU/ML POC Urine HCG, Qual (Negative) Blood Type Antibody Screen 02/15/25 02/15/25 02/15/25 Range/Units 03:35 03:35 03:35 WBC (4.5-10.0) K/mm3 RBC (4.2-5.4) M/mm3 Hgb (12.0-15.0) g/dL Hct (37.0-47.0) % MCV (80-100) fl MCH (26-34) pg MCHC (32-36) g/dl RDW (11.5-14.5) % Plt Count (150-375) k/mm3 MPV (7.4-10.4) fl Immature Gran % (Auto) (0-0.5) % Neut % (Auto) (45.5-73.1) % Lymph % (Auto) (18.3-44.2) % [place] % (Auto) (2.6-8.5) % Eos % (Auto) (0-4.4) % Baso % (Auto) (0.2-1.2) % Lymph # (Auto) (0.9-3.2) K/mm3 [place] # (Auto) (0.1-0.6) K/mm3 Eos # (Auto) (0-0.3) K/mm3 Baso # (Auto) (0.0-0.1) K/mm3 Abs Immat Gran (auto) (0.00-0.031) K/mm3 Absolute Neuts (auto) (1.3-6.7) K/mm3 Absolute Nucleated RBC (0.0-0.012) K/mm3 Nucleated RBC % (0.0-0.2) % Sodium Potassium Chloride Carbon Dioxide Anion Gap BUN Creatinine Estim Creat Clear Calc 66 Estimated GFR Cancelled > 60 Glucose Cancelled 96 Calcium Cancelled Beta HCG, Quant mIU/ML POC Urine HCG, Qual (Negative) Blood Type Antibody Screen 02/15/25 Range/Units 03:35 WBC (4.5-10.0) K/mm3 RBC (4.2-5.4) M/mm3 Hgb (12.0-15.0) g/dL Hct (37.0-47.0) % MCV (80-100) fl MCH (26-34) pg MCHC (32-36) g/dl RDW (11.5-14.5) % Plt Count (150-375) k/mm3 MPV (7.4-10.4) fl Immature Gran % (Auto) (0-0.5) % Neut % (Auto) (45.5-73.1) % Lymph % (Auto) (18.3-44.2) % [place] % (Auto) (2.6-8.5) % Eos % (Auto) (0-4.4) % Baso % (Auto) (0.2-1.2) % Lymph # (Auto) (0.9-3.2) K/mm3 [place] # (Auto) (0.1-0.6) K/mm3 Eos # (Auto) (0-0.3) K/mm3 Baso # (Auto) (0.0-0.1) K/mm3 Abs Immat Gran (auto) (0.00-0.031) K/mm3 Absolute Neuts (auto) (1.3-6.7) K/mm3 Absolute Nucleated RBC (0.0-0.012) K/mm3 Nucleated RBC % (0.0-0.2) % Sodium Potassium Chloride Carbon Dioxide Anion Gap BUN Creatinine Estim Creat Clear Calc Estimated GFR Glucose Calcium 9.7 Beta HCG, Quant 19.73 mIU/ML POC Urine HCG, Qual (Negative) Blood Type A Positive Antibody Screen Negative <Lori Miller MD - Last Filed: 02/15/25 06:24> Lab Results 02/15/25 02/15/25 02/15/25 Range/Units 03:30 03:35 03:35 WBC 7.0 (4.5-10.0) K/mm3 RBC 4.29 (4.2-5.4) M/mm3 Hgb 13.4 (12.0-15.0) g/dL Hct 39.5 (37.0-47.0) % MCV 92.1 (80-100) fl MCH 31.2 (26-34) pg MCHC 33.9 (32-36) g/dl RDW 11.9 (11.5-14.5) % Plt Count 317 (150-375) k/mm3 MPV 10.2 (7.4-10.4) fl Immature Gran % (Auto) 0.3 (0-0.5) % Neut % (Auto) 40.8 L (45.5-73.1) % Lymph % (Auto) 47.3 H (18.3-44.2) % [place] % (Auto) 9.6 H (2.6-8.5) % Eos % (Auto) 1.6 (0-4.4) % Baso % (Auto) 0.4 (0.2-1.2) % Lymph # (Auto) 3.29 H (0.9-3.2) K/mm3 [place] # (Auto) 0.7 H (0.1-0.6) K/mm3 Eos # (Auto) 0.1 (0-0.3) K/mm3 Baso # (Auto) 0.0 (0.0-0.1) K/mm3 Abs Immat Gran (auto) 0.02 (0.00-0.031) K/mm3 Absolute Neuts (auto) 2.8 (1.3-6.7) K/mm3 Absolute Nucleated RBC 0.000 (0.0-0.012) K/mm3 Nucleated RBC % 0.0 (0.0-0.2) % Sodium Cancelled 138 Potassium Cancelled Chloride Carbon Dioxide Anion Gap BUN Creatinine Estim Creat Clear Calc Estimated GFR Glucose Calcium Beta HCG, Quant mIU/ML POC Urine HCG, Qual Positive (Negative) Blood Type Antibody Screen 02/15/25 02/15/25 02/15/25 Range/Units 03:35 03:35 03:35 WBC (4.5-10.0) K/mm3 RBC (4.2-5.4) M/mm3 Hgb (12.0-15.0) g/dL Hct (37.0-47.0) % MCV (80-100) fl MCH (26-34) pg MCHC (32-36) g/dl RDW (11.5-14.5) % Plt Count (150-375) k/mm3 MPV (7.4-10.4) fl Immature Gran % (Auto) (0-0.5) % Neut % (Auto) (45.5-73.1) % Lymph % (Auto) (18.3-44.2) % [place] % (Auto) (2.6-8.5) % Eos % (Auto) (0-4.4) % Baso % (Auto) (0.2-1.2) % Lymph # (Auto) (0.9-3.2) K/mm3 [place] # (Auto) (0.1-0.6) K/mm3 Eos # (Auto) (0-0.3) K/mm3 Baso # (Auto) (0.0-0.1) K/mm3 Abs Immat Gran (auto) (0.00-0.031) K/mm3 Absolute Neuts (auto) (1.3-6.7) K/mm3 Absolute Nucleated RBC (0.0-0.012) K/mm3 Nucleated RBC % (0.0-0.2) % Sodium Potassium 3.8 Chloride Cancelled 103 Carbon Dioxide Cancelled 23 Anion Gap Cancelled BUN Creatinine Estim Creat Clear Calc Estimated GFR Glucose Calcium Beta HCG, Quant mIU/ML POC Urine HCG, Qual (Negative) Blood Type Antibody Screen 02/15/25 02/15/25 02/15/25 Range/Units 03:35 03:35 03:35 WBC (4.5-10.0) K/mm3 RBC (4.2-5.4) M/mm3 Hgb (12.0-15.0) g/dL Hct (37.0-47.0) % MCV (80-100) fl MCH (26-34) pg MCHC (32-36) g/dl RDW (11.5-14.5) % Plt Count (150-375) k/mm3 MPV (7.4-10.4) fl Immature Gran % (Auto) (0-0.5) % Neut % (Auto) (45.5-73.1) % Lymph % (Auto) (18.3-44.2) % [place] % (Auto) (2.6-8.5) % Eos % (Auto) (0-4.4) % Baso % (Auto) (0.2-1.2) % Lymph # (Auto) (0.9-3.2) K/mm3 [place] # (Auto) (0.1-0.6) K/mm3 Eos # (Auto) (0-0.3) K/mm3 Baso # (Auto) (0.0-0.1) K/mm3 Abs Immat Gran (auto) (0.00-0.031) K/mm3 Absolute Neuts (auto) (1.3-6.7) K/mm3 Absolute Nucleated RBC (0.0-0.012) K/mm3 Nucleated RBC % (0.0-0.2) % Sodium Potassium Chloride Carbon Dioxide Anion Gap 12 BUN Cancelled 12 Creatinine Cancelled 0.89 Estim Creat Clear Calc Cancelled Estimated GFR Glucose Calcium Beta HCG, Quant mIU/ML POC Urine HCG, Qual (Negative) Blood Type Antibody Screen 02/15/25 02/15/25 02/15/25 Range/Units 03:35 03:35 03:35 WBC (4.5-10.0) K/mm3 RBC (4.2-5.4) M/mm3 Hgb (12.0-15.0) g/dL Hct (37.0-47.0) % MCV (80-100) fl MCH (26-34) pg MCHC (32-36) g/dl RDW (11.5-14.5) % Plt Count (150-375) k/mm3 MPV (7.4-10.4) fl Immature Gran % (Auto) (0-0.5) % Neut % (Auto) (45.5-73.1) % Lymph % (Auto) (18.3-44.2) % [place] % (Auto) (2.6-8.5) % Eos % (Auto) (0-4.4) % Baso % (Auto) (0.2-1.2) % Lymph # (Auto) (0.9-3.2) K/mm3 [place] # (Auto) (0.1-0.6) K/mm3 Eos # (Auto) (0-0.3) K/mm3 Baso # (Auto) (0.0-0.1) K/mm3 Abs Immat Gran (auto) (0.00-0.031) K/mm3 Absolute Neuts (auto) (1.3-6.7) K/mm3 Absolute Nucleated RBC (0.0-0.012) K/mm3 Nucleated RBC % (0.0-0.2) % Sodium Potassium Chloride Carbon Dioxide Anion Gap BUN Creatinine Estim Creat Clear Calc 66 Estimated GFR Cancelled > 60 Glucose Cancelled 96 Calcium Cancelled Beta HCG, Quant mIU/ML POC Urine HCG, Qual (Negative) Blood Type Antibody Screen 02/15/25 Range/Units 03:35 WBC (4.5-10.0) K/mm3 RBC (4.2-5.4) M/mm3 Hgb (12.0-15.0) g/dL Hct (37.0-47.0) % MCV (80-100) fl MCH (26-34) pg MCHC (32-36) g/dl RDW (11.5-14.5) % Plt Count (150-375) k/mm3 MPV (7.4-10.4) fl Immature Gran % (Auto) (0-0.5) % Neut % (Auto) (45.5-73.1) % Lymph % (Auto) (18.3-44.2) % [place] % (Auto) (2.6-8.5) % Eos % (Auto) (0-4.4) % Baso % (Auto) (0.2-1.2) % Lymph # (Auto) (0.9-3.2) K/mm3 [place] # (Auto) (0.1-0.6) K/mm3 Eos # (Auto) (0-0.3) K/mm3 Baso # (Auto) (0.0-0.1) K/mm3 Abs Immat Gran (auto) (0.00-0.031) K/mm3 Absolute Neuts (auto) (1.3-6.7) K/mm3 Absolute Nucleated RBC (0.0-0.012) K/mm3 Nucleated RBC % (0.0-0.2) % Sodium Potassium Chloride Carbon Dioxide Anion Gap BUN Creatinine Estim Creat Clear Calc Estimated GFR Glucose Calcium 9.7 Beta HCG, Quant 19.73 mIU/ML POC Urine HCG, Qual (Negative) Blood Type A Positive Antibody Screen Negative <Manuel Davis MD - Last Filed: 02/15/25 17:50> Discharge Plan Discharge Clinical Impression: Vaginal bleeding <Lori Miller MD - Last Filed: 02/15/25 06:24> Patient Disposition: Home <Lori Miller MD - Last Filed: 02/15/25 06:24> Condition: Stable <Lori Miller MD - Last Filed: 02/15/25 06:24> Instructions: Abnormal (Dysfunctional) Uterine Bleeding (ED) <Lori Miller MD - Last Filed: 02/15/25 06:24> Additional Instructions: Please follow-up with your OBGYN for further evaluation. Please come back to the hospital if you start having more heavy bleeding or pain, fevers or chills. <Lori Miller MD - Last Filed: 02/15/25 06:24> Patient Language: Nepali <Lori Miller MD - Last Filed: 02/15/25 06:24> Follow-up/Referrals: PHYSICIAN,SUPER[employer]OR [employer] [Primary Care Provider] - Efrem Solo MD [Physician] - <Lori Miller MD - Last Filed: 02/15/25 06:24>
[2025-02-15] MEDS: SODIUM CHLORIDE 0.9% IV 1,000 ML 999 ML IV CONT (03:48)
--- NOTE | 2025-02-15 03:53 | PC.NURSE ---
Pt had Vagal response to blood draw. Pt pale, diaphoretic, nauseated, bradycardic, hypotensive. MD notified, orders for IVF obtained. IVF hung. Pt VS improved with repositioning.
[2025-02-15 03:55] LABS: Anion Gap 12 mmol/L (4-12); Blood Urea Nitrogen 12 mg/dL (7-17); Calcium 9.7 mg/dL (8.4-10.2); Carbon Dioxide 23 mmol/L (22-30); Chloride 103 mmol/L (98-107); Estimated CRCL calculation 66 ml/min; Estimated Glomerular Filt Rate > 60; Glucose 96 mg/dL (65-110); Potassium 3.8 mmol/L (3.4-5.0); Sodium 138 mmol/L (137-145)
[2025-02-15 04:12] LABS: Beta HCG Quantitative 19.73 mIU/ML
--- NOTE | 2025-02-15 08:03 | PC.NURSE ---
Pt returned from [facility]
== END 2025-02-15 09:45 | disposition home or self-care (01) ==
PROVIDERS: Emergency Provider Emergency Medicine
DX: N93.9 Abnormal uterine and vaginal bleeding, unspecified (principal)
CPT/HCPCS: 36415; 76817; 80048; 81025; 84702; 85025; 86850; 86900; 86901; 96360; 99284; J7030